=== PATIENT | female | born 1940 | race Caucasian/White ===

== ENCOUNTER 2020-02-09 09:49 | Outpatient (CLI) | payer MEDICARE, SELFPAY ==
[2020-02-09] MEDS: DENOSUMAB 60 MG/ML SYRINGE SUB-Q (10:24)
== END 2020-02-09 09:50 | disposition home or self-care (01) ==
PROVIDERS: PCP Internal Medicine; Visit Provider Internal Medicine
DX: M81.0 Age-related osteoporosis without current pathological fracture (principal)
CPT/HCPCS: 96372; J0897

== ENCOUNTER 2020-07-21 09:51 | Outpatient (CLI) | payer MEDICARE, SELFPAY ==
--- NOTE | ~2020-07-21 | MM_ITS ---
EXAMINATION: MM screening barb BI w karly HISTORY: Screening mammogram TECHNIQUE: Craniocaudal and mediolateral oblique 3-D tomosynthesis images were obtained and synthetic 2-D images were generated. CAD analysis was submitted and interpreted. COMPARISON: 05/17/2019 diagnostic left digital mammogram and left breast ultrasound 05/12/2019 bilateral digital screening mammogram 04/07/2018 diagnostic left mammogram and left breast ultrasound 03/18/2018 bilateral digital screening mammogram BREAST PARENCHYMAL COMPOSITION: The breasts are heterogeneously dense, which may obscure small masses . FINDINGS: There is asymmetric increased density in the mid to upper outer left breast since prior exa minations, with evidence of multiple circumscribed masses of variable size. Diagnostic left mammogram and left breast ultrasound examination are recommended. Otherwise there is no evidence of suspicious mass, calcification, or architectural distortion to sugg est malignancy in either breast. There has been no other suspicious interval change. IMPRESSION: 1. Multiple left breast masses 2. Diagnostic left mammogram and left breast ultrasound examination are recommended. BI-RADS Category 0: Incomplete: Needs additional imaging evaluation. Reviewed, dictated and finalized at location A. PRODUCTION SUPERVISOR IMPRESSION: 1. Multiple left breast masses 2. Diagnostic left mammogram and left breast ultrasound examination are recomme nded. BI-RADS Category 0: Incomplete: Needs additional imaging evaluation.
--- NOTE | ~2020-07-21 | DEXA_ITS ---
Bone Density Report Name: Camila Burk Age: 80 Sex: Female Ethnicity: White Date of : 1940 Indication: osteopenia; monitoring treatment; height loss; hysterectomy; Referring Provider: Royce Guerrero Study: Bone densitometry was performed. Exam Date: July 21, 2020 Accession number: [id number] Bone Density: Region BMD T-score Z-score Classification Femoral Neck (Right) 0.644 -1.9 0.6 Osteopenia Total Hip (Right) 0.800 -1.2 1.0 Osteopenia World Health Organization criteria for BMD impression classify patients as: Normal (T-score at or above -1.0), Osteopenia (T-score between -1.0 and -2.5), or Osteoporosis (T-score at or below -2.5). 10-year Fracture Risk: FRAX not reported because: Treated for osteoporosis Previous Exams: Region Exam Age BMD T-score BMD Change BMD Change Date g/cm2 vs Baseline vs Previous Total Hip(Right) 07/21/2020 80 0.800 -1.2 0.019 (2.5%)# 0.019 (2.5%)# 10/29/2010 70 0.780 -1.3 *Denotes significance at 95% confidence level, LSC for Total Hip = 0.027 g/cm2 # Denotes dissimilar scan types or analysis methods Clinical Information Provided by Patient: Is being treated for osteoporosis Has used the following medications: Boniva (i.e. ibandronate), Prolia (i.e. denosumab), Vitamin D, Calcium Has the following medical conditions: Hysterectomy Patient maximum height was 62 No regular weight bearing exercise Onset of menses at age 10 Number of children 0 Impression: The patient has low bone mass, based on the Right Femoral Neck T-score. No significant bone loss was observed. Discussion: PATIENT UNDER TREATMENT WITH NO SIGNIFICANT BMD LOSS SINCE LAST EXAM. In an untreated patient, BMD typically declines with age. A lack of decline or gain is usually a sign that treatment is efficacious and fracture risk is reduced. It is important to ask patients whether they are taking their medications and to encourage continued and appropriate compliance with their osteoporosis therapies to reduce fracture risk. It is also important to review their risk factors and encourage appropriate calcium and vitamin D intakes, exercise, fall prevention and other lifestyle measures. Follow-Up: Consider a repeat BMD and Vertebral Fracture Assessment (VFA) exam in 2 years or sooner if medically necessary, to reassess this patient's status. Reported by: Dr. Jl Nicole on 07/21/2020 10:48:00 AM. Reviewed, dictated and finalized at location A. [facility]
== END 2020-07-21 09:52 | disposition home or self-care (01) ==
LOC: CHSIMG 09:54
PROVIDERS: PCP Internal Medicine; Visit Provider Internal Medicine
DX: Z12.31 Encounter for screening mammogram for malignant neoplasm of breast (principal); M81.0 Age-related osteoporosis without current pathological fracture
CPT/HCPCS: 77063; 77067; 77080

== ENCOUNTER 2020-08-17 08:51 | Outpatient (CLI) | payer MEDICARE, SELFPAY ==
[2020-08-17] MEDS: DENOSUMAB 60 MG/ML SYRINGE SUB-Q (09:10)
== END 2020-08-17 08:52 | disposition home or self-care (01) ==
LOC: CHSTREATRM 08:54
PROVIDERS: PCP Internal Medicine; Visit Provider Internal Medicine
DX: M81.0 Age-related osteoporosis without current pathological fracture (principal)
CPT/HCPCS: 96372; J0897

== ENCOUNTER 2021-02-08 08:44 | Outpatient (CLI) | payer MEDICARE, SELFPAY ==
[2021-02-08] MEDS: DENOSUMAB 60 MG/ML SYRINGE SUB-Q (08:59)
== END 2021-02-08 08:45 | disposition home or self-care (01) ==
LOC: CHSLAB 08:46 → CHSTREATRM 08:47
PROVIDERS: PCP Internal Medicine; Visit Provider Internal Medicine
DX: M81.0 Age-related osteoporosis without current pathological fracture (principal)
CPT/HCPCS: 96372; J0897

== ENCOUNTER 2021-08-15 08:55 | Outpatient (CLI) | payer MEDICARE, SELFPAY ==
[2021-08-15 09:05] VITALS: BMI 36.6
[2021-08-15 09:06] VITALS: BP 130/72; PULSE 72; RESP 14; TEMP 36.6; O2SAT 95
[2021-08-15] MEDS: DENOSUMAB 60 MG/ML SYRINGE SUB-Q (09:12)
--- NOTE | 2021-08-15 09:16 | PC.NURSE ---
Patient here for Prolia injection. Education on Prolia given. No concerns voiced. Prolia injection given. Safe exit of hospital. Will return in 6 months.
== END 2021-08-15 08:56 | disposition home or self-care (01) ==
LOC: CHSTREATRM 08:59
PROVIDERS: PCP Internal Medicine; Visit Provider Internal Medicine
DX: M81.0 Age-related osteoporosis without current pathological fracture (principal)
CPT/HCPCS: 96372; J0897

== ENCOUNTER 2022-02-07 11:30 | Outpatient (CLI) | payer MEDICARE, SELFPAY ==
--- NOTE | 2022-02-07 11:45 | ECG_ITS ---
Measurements Intervals [place] Rate: 81 P: 22 CT: 134 QRS: 61 QRSD: 81 T: 18 QT: 377 QTc: 439 Interpretive Statements SINUS RHYTHM WITH SINUS ARRHYTHMIA WITHIN NORMAL LIMITS NO PREVIOUS ECG AVAILABLE FOR COMPARISON Electronically Signed On 02-08-2022 15:52:02 CDT by Sal Terry M.D.
== END 2022-02-07 11:31 | disposition home or self-care (01) ==
LOC: CHSCARD 11:33
PROVIDERS: PCP Internal Medicine; Visit Provider Internal Medicine
DX: I49.9 Cardiac arrhythmia, unspecified (principal); I10 Essential (primary) hypertension
CPT/HCPCS: 93005

== ENCOUNTER 2022-02-14 12:36 | Outpatient (CLI) | payer MEDICARE, SELFPAY ==
--- NOTE | 2022-02-14 12:45 | PC.NURSE ---
Here for OP SQ injection, tolerated well
[2022-02-14] MEDS: DENOSUMAB 60 MG/ML SYRINGE SUB-Q (12:47)
--- NOTE | 2022-02-14 12:58 | PC.NURSE ---
discharge to home via wheel chair, tolerated well,
== END 2022-02-14 12:37 | disposition home or self-care (01) ==
LOC: CHSTREATRM 12:38
PROVIDERS: PCP Internal Medicine; Visit Provider Internal Medicine
DX: M81.0 Age-related osteoporosis without current pathological fracture (principal)
CPT/HCPCS: 96372; J0897

== ENCOUNTER 2022-08-15 13:14 | Outpatient (CLI) | payer MEDICARE, SELFPAY ==
[2022-08-15 13:25] VITALS: BP 154/82; PULSE 80; RESP 14; TEMP 36.4; O2SAT 98; BMI 37.0
[2022-08-15] MEDS: DENOSUMAB 60 MG/ML SYRINGE SUB-Q (13:28)
--- NOTE | 2022-08-15 13:37 | PC.NURSE ---
Patient here for q 6 month Prolia injection. Education given. No concerns voiced. SC Prolia injection administered. See MAR. Tolerated well. Safe exit to car per nurse.
== END 2022-08-15 13:15 | disposition home or self-care (01) ==
LOC: CHSTREATRM 13:16
PROVIDERS: PCP Internal Medicine; Visit Provider Internal Medicine
DX: M81.0 Age-related osteoporosis without current pathological fracture (principal)
CPT/HCPCS: 96372; J0897

== ENCOUNTER 2023-02-14 08:41 | Outpatient (CLI) | payer MEDICARE, SELFPAY ==
[2023-02-14 08:51] VITALS: BMI 37.0
[2023-02-14 08:55] VITALS: BP 145/78; PULSE 72; RESP 14; TEMP 36.7; O2SAT 98
[2023-02-14] MEDS: DENOSUMAB 60 MG/ML SYRINGE SUB-Q (08:57)
--- NOTE | 2023-02-14 09:00 | PC.NURSE ---
Patient here for q 6 month Prolia injection. Education given. No concerns voiced. Reports hasn't had problem with them yet. Injection administered. SEE MAR. Tolerated well. Safe exit of hospital per wc per nurse.
== END 2023-02-14 08:42 | disposition home or self-care (01) ==
LOC: CHSTREATRM 08:47
PROVIDERS: PCP Internal Medicine; Visit Provider Internal Medicine
DX: M81.0 Age-related osteoporosis without current pathological fracture (principal)
CPT/HCPCS: 96372; J0897

== ENCOUNTER 2023-08-13 10:12 | Outpatient (CLI) | payer MEDICARE, SELFPAY ==
[2023-08-13 10:43] VITALS: BP 149/80; PULSE 70; RESP 16; TEMP 36.3; O2SAT 97; BMI 36.3
[2023-08-13] MEDS: DENOSUMAB 60 MG/ML SYRINGE SUB-Q (10:43)
--- NOTE | 2023-08-13 10:45 | PC.NURSE ---
Patient here for q 6 month Prolia injection. Education given. No concerns voiced. Reports did well with last few in last few years. Injection administered. See MAR. Tolerated well. Safe exit of hospital per wc/staff to car.
== END 2023-08-13 10:13 | disposition home or self-care (01) ==
LOC: CHSTREATRM 10:18
PROVIDERS: PCP Internal Medicine; Visit Provider Internal Medicine
DX: M81.0 Age-related osteoporosis without current pathological fracture (principal)
CPT/HCPCS: 96372; J0897

== ENCOUNTER 2024-02-13 08:45 | Outpatient (CLI) | payer MEDICARE, SELFPAY ==
[2024-02-13 09:01] VITALS: BP 146/86; PULSE 72; RESP 16; TEMP 36.5; O2SAT 97; BMI 36.1
[2024-02-13] MEDS: DENOSUMAB 60 MG/ML SYRINGE SUB-Q (09:05)
--- NOTE | 2024-02-13 09:11 | PC.NURSE ---
Here for every 6 month Prolia injection. Education given. No concerns voiced. Injection administered. Tolerated well. Safe exit hospital.
== END 2024-02-13 08:46 | disposition home or self-care (01) ==
PROVIDERS: PCP Internal Medicine; Visit Provider Internal Medicine
DX: M81.0 Age-related osteoporosis without current pathological fracture (principal)
CPT/HCPCS: 96372; J0897

== ENCOUNTER 2024-08-24 14:01 | Outpatient (CLI) | payer MEDICARE, SELFPAY ==
--- NOTE | ~2024-08-24 | XR_ITS ---
XR shoulder LT min 2V Ordering provider: Dwain Simms MD History: . Left shoulder fracture . Comparison: None. FINDINGS: BONES: Minimally displaced fracture in the proximal metaphysis of the left humerus. JOINT SPACES: The acromioclavicular joint is normal. The glenohumeral joint is normal. SOFT TISSUES: Normal. IMPRESSION: Nondisplaced fracture in the proximal metaphysis of the left humerus. Reviewed, dictated and finalized at location A. 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
== END 2024-08-24 14:02 | disposition home or self-care (01) ==
LOC: CHSIMG 14:05
PROVIDERS: PCP Internal Medicine; Visit Provider Orthopaedic Surgery
DX: M25.512 Pain in left shoulder (principal); S42.292A Other displaced fracture of upper end of left humerus, initial encounter for closed fracture
CPT/HCPCS: 73030

== ENCOUNTER 2025-01-06 10:17 | Outpatient (CLI) | payer MEDICARE, SELFPAY ==
--- NOTE | ~2025-01-06 | XR_ITS ---
XR sacroiliac joints min 3V Ordering provider: Lisa Lockhart, SUNDAY History: . sacroiliac dysfunction,LOW BACK PAIN . Comparison: None. FINDINGS: BONES: No acute fracture or dislocation. JOINTS: Ad sacroiliitis is noted.. No bony fusion of the sacroiliac joints or bony erosions. Pubic symphysitis. SOFT TISSUES: Unremarkable. IMPRESSION: NO ACUTE OSSEOUS ABNORMALITY. Right sacroiliitis. Reviewed, dictated and finalized at location A.
--- NOTE | ~2025-01-06 | MR_ITS ---
MRI of the lumbar spine Clinical History: Radiculopathy, lumbar stenosis Technique: Axial T2-weighted images, and sagittal T1-weighted, T2-weighted, and and T2 fat-sat images were acquired. Findings: No acute fracture seen. There is 3 mm anterolisthesis of L3 over L4. There is 5 mm anteroli sthesis of L4 over L5. Bone marrow signals are unremarkable. At L1-L2, there is no disc bulge or herniation. No spinal canal stenosis or neural foraminal narrowin g. At L2-L3, there is no disc bulge or herniation. No spinal canal stenosis or neural foraminal narrowin g. At L3-L4, there is moderate to advanced degenerative disc narrowing. Disc bulge and facet arthropathy result in severe spinal canal stenosis/thecal sac compression. There is moderate right neural forami nal narrowing. Left neural foramen preserved. At L4-L5, there is moderate degenerative disc narrowing. Disc bulge and severe facet arthropathy resu lt in moderate to severe spinal canal stenosis. There is moderate left neural foraminal narrowing, an d minimal right neural foraminal narrowing. At L5-S1, there is minimal disc bulge and mild facet arthropathy. No central canal stenosis or defini te neural foraminal narrowing. Paravertebral soft tissues are unremarkable. Impression: Severe degenerative spondylosis at L3-L4 and L4-L5, as detailed above. 3 mm anterolisthesis of L3 over L4. 5 mm anterolisthesis of L4 over L5. Reviewed, dictated and finalized at [facility]. Impression: Severe degenerative spondylosis at L3-L4 and L4-L5, as detailed above. 3 mm anterolisthesis of L3 over L4. 5 mm anterolisthesis of L4 over L5.
--- NOTE | ~2025-01-06 | XR_ITS ---
Left Shoulder Technique: AP and scapular Y views were obtained. Clinical History: Fracture follow-up COMPARISON: 08/24/2024 Findings: There is probable healed fracture deformity of the greater tuberosity and surgical neck of the left humerus. No acute fracture seen.. There is probable mild degenerative changes glenohumeral j oint. AC joint intact. Soft tissues are unremarkable. Impression: Healed fracture deformity of the surgical neck and greater tuberosity of the proximal humerus. No acu te fracture evident. Reviewed, dictated and finalized at location M. Impression: Healed fracture deformity of the surgical neck and greater tuberosity of the pr oximal humerus. No acute fracture evident.
--- OUTSIDE RECORDS SUMMARY | 2025-01-06 10:26 | XMS_ITS | Continuity of Care Document ---
Author Organization [facility] Address [address] [place] [address] Phone Care Team Providers Care Event Manager Name Role Phone Norman Banegas DO Unavailable Unavailable Advance Directives Directive Yes / No Effective Date File Name No Information Encounters Encounter Description Practice Location Reason(s) For Visit Diagnoses Date Provider Providers Copied on Encounter [facility], [address], [place], [place], [id number], tel:[phone] [facility] No Information Bassam Lama. [address] [place], [address], [place]. tel: [phone] Family History Family Member Type Diagnosis Age At Onset No Information Payers Payer name Insurance type Covered constitution party ID Authoriza tion(s) [place] [id number] Social History Type Description Quantity Date Captured [...]
== END 2025-01-06 10:18 | disposition home or self-care (01) ==
PROVIDERS: PCP Internal Medicine; Visit Provider Physician Assistant
DX: M54.16 Radiculopathy, lumbar region (principal); M48.062 Spinal stenosis, lumbar region with neurogenic claudication; M46.1 Sacroiliitis, not elsewhere classified; S42.212D Unspecified displaced fracture of surgical neck of left humerus, subsequent encounter for fracture with routine healing; M43.06 Spondylolysis, lumbar region
CPT/HCPCS: 72148; 72202; 73030

== ENCOUNTER 2025-04-05 08:57 | Outpatient (CLI) | payer MEDICARE, SELFPAY ==
--- OUTSIDE RECORDS SUMMARY | 2003-04-25 09:30 | XMS_ITS | Continuity of Care Document ---
Author Organization [facility] Address [address] [place] [address] Phone Care Team Providers Care Head Screen Worker Name Role Phone Norman Banegas DO Unavailable Unavailable Advance Directives Directive Yes / No Effective Date File Name No Information Encounters Encounter Description Practice Location Reason(s) For Visit Diagnoses Date Provider Providers Copied on Encounter [facility], [address], [place], [place], [id number], tel:[phone] [facility] No Information Bassam Lama. [address] [place], [address], [place]. tel: [phone] Family History Family Member Type Diagnosis Age At Onset No Information Payers Payer name Insurance type Covered democrat ID Authoriza tion(s) [place] [id number] Social History Type Description Quantity Date Captured Comments Sex Female Smoking Status No Information Chief Complaint And Reason For Visit No Information Reason For Referral Reason For Referral No Information History Of Present Illness Encounter Date Complaint History Of Prese nt Illness No Information Functional Status Date Functional Assessmen t No Information Instructions Date Instruction Additional Infor mation No Information Assessments Type Assessment Date No Information Patient Care Teams Name Effective Dates (start - stop) Status Members No Information
[2025-04-05 09:11] VITALS: BP 155/86; PULSE 78; RESP 16; TEMP 36.7; O2SAT 98; BMI 34.8
[2025-04-05] MEDS: DENOSUMAB 60 MG/ML SYRINGE SUB-Q (09:17)
== END 2025-04-05 08:58 | disposition home or self-care (01) ==
LOC: CHSLAB 09:00 → CHSTREATRM 09:01
PROVIDERS: PCP Internal Medicine; Visit Provider Internal Medicine
DX: M81.0 Age-related osteoporosis without current pathological fracture (principal)
CPT/HCPCS: 96372; J0897